=== PATIENT | female | born 1930 | race Caucasian/White ===

== ENCOUNTER 2017-01-02 07:58 | Emergency (ER) | payer MEDICARE, BC ==
[2017-01-02] MEDS ORDERED: ONDANSETRON 4 MG ODT BU ONE (08:08)
[2017-01-02] MEDS ORDERED: ONDANSETRON HCL 4 MG/2 ML SOL ONE (08:09)
[2017-01-02] MEDS ORDERED: ONDANSETRON 4 MG ODT ONE (08:09)
[2017-01-02] MEDS ORDERED: LIDOCAINE HCL 2% (VISCOUS) 20 ML SOL ONE (08:18)
[2017-01-02] MEDS ORDERED: ALUMINUM/MAGNESIUM 30 ML SUS ONE (08:18)
[2017-01-02] MEDS ORDERED: ALUMINUM/MAGNESIUM 30 ML SUS PO ONE (08:19)
[2017-01-02] MEDS ORDERED: LIDOCAINE HCL 2% (VISCOUS) 20 ML SOL MT ONE (08:19)
[2017-01-02] MEDS ORDERED: MORPHINE SULFATE 10 MG/ML SOL IV ONE (08:32)
[2017-01-02] MEDS ORDERED: SODIUM CHLORIDE 0.9% 1000 ML SOL IV ONE (08:33)
[2017-01-02 08:40] LABS: HEMATOCRIT 39 % (35-47); MEAN CORPUSCULAR HGB CONC 35.7 gm/dl (32.0-36.0); MEAN CORPUSCULAR VOLUME 88 fL (81-99)
[2017-01-02 08:43] LABS: ALBUMIN 3.5 gm/dl (3.4-5.0); CALCIUM 9.2 mg/dl (8.5-10.1); POTASSIUM 3.9 mMol/L (3.5-5.1)
[2017-01-02] MEDS ORDERED: MORPHINE SULFATE 10 MG/ML SOL ONE (08:45)
[2017-01-02 09:04] LABS: BASOPHILS % (MANUAL) 0 % (0-3); EOSINOPHILS % (MANUAL) 4 % (0-9); LYMPHOCYTES % (MANUAL) 22 % (10-50)
[2017-01-02 09:05] LABS: NORMAL RBCS PRESENT
[2017-01-02 09:19] LABS: APPEARANCE,URINE Clear; BILIRUBIN,URINE NEGATIVE (NEGATIVE); COLOR,URINE Yellow; GLUCOSE, URINE (UA) NEGATIVE (NEGATIVE); KETONES,URINE TRACE (NEGATIVE); LEUKOCYTE ESTERASE ,URINE NEGATIVE (NEGATIVE); NITRATE,URINE NEGATIVE (NEGATIVE); OCCULT BLOOD,URINE NEGATIVE (NEG-TRACE); PH,URINE 8.5; UROBILINOGEN,URINE 0.2 (0.2-1.0 EU)
[2017-01-02 09:20] VITALS: RESP 16; TEMP 98.3; O2SAT 98
[2017-01-02 09:32] LABS: RBC,URINE NEGATIVE (0-3AV/HPF); WBC,URINE 0-4 (0-5AV/HPF)
[2017-01-02 10:52] VITALS: BP 117/78; PULSE 68
== END 2017-01-02 10:30 | disposition home or self-care (01) | DRG 392 ==
LOC: ED 07:58
DX: K21.9 Gastro-esophageal reflux disease without esophagitis (principal)
CPT/HCPCS: 36415; 74177; 80053; 81001; 82150; 85007; 85027; 93005; 99284; 99285; J2270; J2405; Q9967

== ENCOUNTER 2017-05-14 08:45 | Emergency (ER) | payer MEDICARE, BC ==
[2017-05-14] MEDS ORDERED: KETOROLAC TROMETHAMINE 30 MG/ML SOL IV ONE (09:00)
[2017-05-14] MEDS ORDERED: MORPHINE SULFATE 10 MG/ML SOL IV ONE (09:00)
[2017-05-14] MEDS ORDERED: SODIUM CHLORIDE 0.9% FLUSH 10 ML SOL IV PRN (09:01)
[2017-05-14] MEDS ORDERED: KETOROLAC TROMETHAMINE 30 MG/ML SOL ONE (09:07)
[2017-05-14] MEDS ORDERED: MORPHINE SULFATE 10 MG/ML SOL ONE (09:07)
[2017-05-14] MEDS ORDERED: ONDANSETRON HCL 4 MG/2 ML SOL ONE ×2 (09:11→10:52)
[2017-05-14] MEDS ORDERED: ONDANSETRON HCL 4 MG/2 ML SOL IV ONE ×2 (09:11→10:51)
[2017-05-14] MEDS ORDERED: SOLUMEDROL 125 MG/2 ML 125 MG/2 ML PDS IV ONE (09:16)
[2017-05-14] MEDS ORDERED: HYDROMORPHONE HCL 2 MG/ML SOL IV ONE (09:16)
[2017-05-14] MEDS ORDERED: HYDROMORPHONE HCL 2 MG/ML SOL ONE (09:24)
[2017-05-14] MEDS ORDERED: SOLUMEDROL 125 MG/2 ML 125 MG/2 ML PDS ONE (09:24)
[2017-05-14] MEDS ORDERED: ALUMINUM/MAGNESIUM 30 ML SUS ONE (09:41)
[2017-05-14] MEDS ORDERED: LIDOCAINE HCL 2% (VISCOUS) 20 ML SOL ONE (09:41)
[2017-05-14] MEDS ORDERED: LIDOCAINE HCL 2% (VISCOUS) 20 ML SOL MT ONE (09:42)
[2017-05-14] MEDS ORDERED: ALUMINUM/MAGNESIUM 30 ML SUS PO ONE (09:42)
[2017-05-14 10:10] LABS: BASOPHILS % (AUTO) 0 % (0-3); EOSINOPHILS % (AUTO) 0 % (0-9); HEMATOCRIT 35 % (35-47); MEAN CORPUSCULAR HGB CONC 36.6 gm/dl (32.0-36.0); MEAN CORPUSCULAR VOLUME 89 fL (81-99); MONOCYTES % (AUTO) 8.3 % (0-12); NEUTROPHILS % (AUTO) 82.9 % (37-80)
[2017-05-14 10:16] VITALS: RESP 16; TEMP 98.8
[2017-05-14 10:18] LABS: ALBUMIN 3.2 gm/dl (3.4-5.0); ALT 32 IU/L (14-63); CALCIUM 9.1 mg/dl (8.5-10.1); GLOM FILT RATE 58 mL/min (>60); SODIUM 133 mMol/L (136-145)
[2017-05-14] MEDS ORDERED: SODIUM CHLORIDE 0.9% 1000 ML SOL IV SCH (11:00)
[2017-05-14 11:02] LABS: APPEARANCE,URINE Clear; BILIRUBIN,URINE NEGATIVE (NEGATIVE); COLOR,URINE Yellow; GLUCOSE, URINE (UA) NEGATIVE (NEGATIVE); KETONES,URINE NEGATIVE (NEGATIVE); LEUKOCYTE ESTERASE ,URINE NEGATIVE (NEGATIVE); NITRATE,URINE NEGATIVE (NEGATIVE); OCCULT BLOOD,URINE NEGATIVE (NEG-TRACE); PH,URINE 7.5; UROBILINOGEN,URINE 0.2 (0.2-1.0 EU)
[2017-05-14 11:13] LABS: RBC,URINE NEGATIVE (0-3AV/HPF); WBC,URINE NEGATIVE (0-5AV/HPF)
[2017-05-14 13:02] VITALS: BP 148/63; PULSE 78; O2SAT 93
== END 2017-05-14 13:35 | disposition home or self-care (01) | DRG 547 ==
LOC: ED 08:45
DX: M06.9 Rheumatoid arthritis, unspecified (principal)
CPT/HCPCS: 36415; 73501; 80053; 81001; 84484; 85025; 93005; 96365; 96374; 96375; 99284; 99285; J1170; J1885; J2270; J2405; J2930

== ENCOUNTER 2018-02-08 06:33 | Day surgery (SDC) | payer MEDICARE, BC ==
[2018-02-08] MEDS ORDERED: ACETAZOLAMIDE 250 MG PO ONE (06:39)
[2018-02-08] MEDS: PROPARACAINE HCL 0.5% OPHTHALMIC SOL ONE ×3 (06:49→07:58)
[2018-02-08] MEDS: PHENYLEPHRINE HCL 10% OPHTHAL SOL ONE ×2 (06:50→07:03)
[2018-02-08] MEDS: KETOROLAC 0.5% OPTH 60 DROP SOL ONE ×2 (06:51→07:04)
[2018-02-08] MEDS: CYCLOPENTOLATE 1% SOL ONE ×2 (06:51→07:04)
[2018-02-08] MEDS ORDERED: FENTANYL 100MCG/2ML SOL ONE (07:34)
[2018-02-08] MEDS ORDERED: MIDAZOLAM 2 MG/2 ML SOL ONE (07:34)
[2018-02-08] MEDS ORDERED: POVIDONE IODINE 5% SOL ONE (07:53)
[2018-02-08] MEDS ORDERED: LIDOCAINE HCL 1% MPF 30 SOL ONE (07:54)
[2018-02-08] MEDS: BSS 500 ML 500 ML IR ONE ×2 (07:59→08:04)
[2018-02-08 08:28] VITALS: BP 122/62; PULSE 67; RESP 18; TEMP 97.1; O2SAT 95
== END 2018-02-08 08:47 | disposition home or self-care (01) | DRG 125 ==
LOC: SURG 06:33
PROVIDERS: ATTEND Ophthalmology
DX: H25.9 Unspecified age-related cataract (principal)
CPT/HCPCS: J2250; J3010; A9270-GY; J2001

== ENCOUNTER 2019-03-09 09:41 | Outpatient (CLI) | payer MEDICARE, BC | END 2019-03-09 09:42 | disposition home or self-care (01) | LOC: CONVCARE 09:41 ==